=== PATIENT | female | born 1995 | race Caucasian/White ===

== ENCOUNTER 2025-02-16 15:18 | Emergency (ER) | payer SELFPAY ==
--- NOTE | ~2025-02-16 | US_ITS ---
EXAMINATION: US OB transvaginal INDICATION: Painless bleeding. Evaluate for ectopic . Comparison:No prior studies for comparison. TECHNIQUE: Multiple endovaginal sonographic images of the pelvis performed. FINDINGS: The uterus measures 10.2 x 5.1 x 8.1 cm. The endometrial complex measures 5 mm. No evidence for intrauterine . The right ovary measures 4 x 2.7 x 0.8 cm and the left ovary measures 3.3 x 3.6 x 1.6 cm. Right ovary has a heterogeneous appearance without discrete gestational sac or abnormal vascularity. Normal doppler signal in both ovaries. There is no free fluid in the pelvis. There are no abnormal masses seen on either side. IMPRESSION: 1. No evidence for intrauterine . Heterogeneous appearance to the right ovary/adnexa without discrete gestational sac or mass. Differential diagnosis includes very early intrauterine , failed and ectopic . Recommend follow-up with serial quantitative beta-hCG levels and ultrasound as clinically warranted. Reviewed, dictated and finalized at location [facility]. IMPRESSION: 1. No evidence for intrauterine . Heterogeneous appearance to the righ t ovary/adnexa without discrete gestational sac or mass. Differential diagnosis includes very early intrauterine , failed and ectopic pregn jonathan. Recommend follow-up with serial quantitative beta-hCG levels and ultrasou nd as clinically warranted.
--- NOTE | 2025-02-16 15:35 | ED.GENADULT ---
HPI - General Adult General Chief complaint: Recheck/Abnormal Lab/Rx Stated complaint: r/o ectopic Time Seen by Provider: 02/16/25 15:28 History of Present Illness HPI narrative: 29 y/o female presents with vaginal bleeding that happened this morning. patient had a positive test on 02/07 and has had intermittent spotting that started on 02/08. patient states she woke up and had a large amount of vaginal bleeding this morning. patient had some abdominal cramping that has subsided. patient went to [facility] but they did not have US. patient had + quant and was given rhogam at outside hospital. patient is . patient has not had care yet. patient states she recently moved to the area. no other complaints. Onset (ago): hour(s) (8) Related Data Allergies Allergy/AdvReac Type Severity Reaction Status Date / Time No Known Allergies Allergy Verified 02/16/25 16:55 Review of Systems Review of Systems: A 10 system review of systems was completed on the patient and is negative except for what is stated in the HPI. Nursing and ancillary documentation was reviewed. Exam Narrative: GENERAL: Well-appearing, well-nourished, and in no acute distress. HEAD: Normocephalic, atraumatic. EYES: PERRLA and EOMI. ENT: Nares clear, no rhinorrhea or epistaxis. Mucous membranes moist. NECK: Supple. CHEST: Clear to auscultation. No respiratory distress. HEART: Regular rate and rhythm. No murmur heard. Normal peripheral pulses. ABDOMEN: Soft, nontender, nondistended, normal active bowel sounds. EXTREMITIES: Normal range of motion. No edema. SKIN: Warm, dry, no rash. NEURO: No focal deficits. Alert and oriented x3. PSYCH: Normal mood and affect. Course Course Emergency Course: Ultrasound ordered to rule out ectopic. Patient had labs at outside facility. Patient was given RhoGAM prior to arrival and had positive quant Consultations Consultation #1: Dr. Travis Fields Spoke with OB. Recommended patient follow-up in 48 hours repeat hcg and cbc at this time. will start on vitamins. Date: 02/16/25 Time: 16:51 Vital Signs Vital signs: Vital Signs Temperature 36.6 C 02/16/25 15:37 Pulse Rate 109 H 02/16/25 15:37 Respiratory Rate 17 02/16/25 15:37 Blood Pressure 126/90 02/16/25 15:37 Pulse Oximetry 100 02/16/25 15:37 Temperature 36.6 C 02/16/25 15:37 Pulse Rate 109 H 02/16/25 15:37 Respiratory Rate 17 02/16/25 15:37 Blood Pressure 126/90 02/16/25 15:37 Pulse Oximetry 100 02/16/25 15:37 Medical Decision Making MDM Narrative Medical decision making narrative: Patient had inconclusive Ob ultrasound. Consulted Dr. Travis Fields with OBGYN who recommended repeat HCG in 48 hours. Patient is agreeable with plan of care. Will start on vitamins. Differential Diagnosis Differential Diagnosis: Ectopic versus intrauterine versus miscarriage Vital Signs Vital Signs: Vital Signs Temperature 36.6 C 02/16/25 15:37 Pulse Rate 109 H 02/16/25 15:37 Respiratory Rate 17 02/16/25 15:37 Blood Pressure 126/90 02/16/25 15:37 Pulse Oximetry 100 02/16/25 15:37 Temperature 36.6 C 02/16/25 15:37 Pulse Rate 109 H 02/16/25 15:37 Respiratory Rate 17 02/16/25 15:37 Blood Pressure 126/90 02/16/25 15:37 Pulse Oximetry 100 02/16/25 15:37 Imaging Data Radiologist's impression: IMPRESSION: 1. No evidence for intrauterine . Heterogeneous appearance to the right ovary/adnexa without discrete gestational sac or mass. Differential diagnosis includes very early intrauterine , failed and ectopic . Recommend follow-up with serial quantitative beta-hCG levels and ultrasound as clinically warranted. Discharge Plan Discharge Clinical Impression: Vaginal bleeding, Threatened miscarriage Patient Disposition: Home Condition: Stable Instructions: Antibiotic Form, Miscarriage (ED) Additional Instructions: TAKE MEDICATIONS PRESCRIBED FOLLOW-UP WITH [facility] [facility] RECOMMEND RETURN FOR WORSENING SYMPTOMS, FEVER, OR ABDOMINAL PAIN Patient Language: Slovenian Prescriptions: New PNV no.95-ferrous fumarate-FA [ Multivitamins] 28 mg iron- 800 mcg tablet 1 tablet PO DAILY Qty: 14 0RF Follow-up/Referrals: Jake Garcia MD [Physician, [facility] [facility]] - 2 Days PHYSICIAN,[employer] [Primary Care Provider, Internal Medicine] Time of Disposition: 16:55
[2025-02-16 15:37] VITALS: BP 126/90; PULSE 109; RESP 17; TEMP 36.6; O2SAT 100
--- NOTE | 2025-02-16 17:03 | PC.NURSE ---
Per physician ALINE Florez okay to discharge pt after labs drawn before results recieved. Pt updated to follow up with OBGYN referral and repeat HCG on Tuesday. Pt verbalizes understanding and feels safe going home at this time. Respirations even and unlabored. NAD noted at this time. Ambulated with steady gait at discharge.
[2025-02-16 17:21] LABS: Hematocrit 42.1 % (37.0-47.0); Hemoglobin 14.3 g/dL (12.0-15.0); Immature Granulocyte Percent A 0.2 % (0-0.5); Lymphocytes Absolute Auto 2.20 K/mm3 (0.9-3.2); Mean Corpuscular HGB Conc 34.0 g/dl (32-36); Mean Corpuscular Hemoglobin 31.8 pg (26-34); Mean Corpuscular Volume 93.6 fl (80-100); Nucleated Red Blood Cells Absolute Auto 0.000 K/mm3 (0.0-0.012); Nucleated Red Blood Cells Perc 0.0 % (0.0-0.2); Platelet Count Result 281 k/mm3 (150-375); Red Blood Count 4.50 M/mm3 (4.2-5.4); White Blood Count 6.4 K/mm3 (4.5-10.0)
[2025-02-16 17:36] LABS: Beta HCG Quantitative 767.13 mIU/ML
== END 2025-02-16 17:07 | disposition home or self-care (01) ==
PROVIDERS: Emergency Provider Nurse Practitioner Family
DX: O20.0 Threatened abortion (principal); Z3A.01 Less than 8 weeks gestation of pregnancy
CPT/HCPCS: 36415; 76817; 84702; 85025; 99284